=== PATIENT | male | born 1980 | race Caucasian/White ===

== ENCOUNTER → 2022-01-14 10:35 | Outpatient (BNVA) | payer OTHER, SELFPAY | PROVIDERS: Family Provider Nurse Practitioner; Visit Provider Emergency Medicine | DX: R07.9 Chest pain, unspecified (principal); F17.200 Nicotine dependence, unspecified, uncomplicated | CPT/HCPCS: 71046 ==

== ENCOUNTER → 2023-12-14 11:21 | Outpatient (BNVA) | payer OTHER, SELFPAY | PROVIDERS: PCP Nurse Practitioner; Visit Provider Nurse Practitioner | DX: R19.7 Diarrhea, unspecified (principal); K92.1 Melena; R10.11 Right upper quadrant pain; R53.83 Other fatigue | CPT/HCPCS: 80053; 83036; 85025 ==